=== PATIENT | female | born 1950 | race Caucasian/White ===

== ENCOUNTER 2018-05-23 11:59 | Emergency (ER) | payer MEDICARE ==
[~2018-05-23] VITALS: Ht 170.2 cm; Wt 74.8 kg
[2018-05-23] MEDS ORDERED: IV NORMAL SALINE 1,000ML 1,000 ML IV SCH (12:17)
[2018-05-23] MEDS ORDERED: ONDANSETRON PF 4 MG/2 ML VIAL. IV ONE (12:30)
[2018-05-23 12:53] LABS: BASO % 1 % (0-3); EOS # 0.2 x10^3/uL (0.0-0.7); EOS % 4 % (0-3); HEMATOCRIT 37.8 % (36.0-47.0); HEMOGLOBIN 12.3 g/dL (12.0-15.5); LYMPH # 1.4 x10^3/uL (1.0-4.8); LYMPH % 27 % (24-48); MEAN CORPUSCULAR HEMOGLOBIN 27 pg (25-35); MEAN CORPUSCULAR HGB CONC 33 g/dL (31-37); MEAN CORPUSCULAR VOLUME 82 fL (79-100); MONO # 0.6 x10^3/uL (0.0-1.1); MONO % 12 % (0-9); NEUT # 2.9 x10^3uL (1.8-7.7); NEUT % 56 % (31-73); PLATELET COUNT 354 x10^3/uL (140-400); RED BLOOD COUNT 4.61 x10^6/uL (3.50-5.40); RED CELL DISTRIBUTION WIDTH 15.6 % (11.5-14.5); WHITE BLOOD COUNT 5.1 x10^3/uL (4.0-11.0)
[2018-05-23 13:00] LABS: ALBUMIN 3.1 g/dL (3.4-5.0); ALBUMIN/GLOBULIN RATIO 0.8 (1.0-1.7); CALCIUM 8.9 mg/dL (8.5-10.1); CREATININE 0.9 mg/dL (0.6-1.0); GFR 62.8; POTASSIUM 3.1 mmol/L (3.5-5.1); TOTAL BILIRUBIN 0.6 mg/dL (0.2-1.0); TOTAL PROTEIN 6.8 g/dL (6.4-8.2)
[2018-05-23] MEDS ORDERED: IOHEXOL 300 MG/ML 75 ML VIAL. IV ONE (13:00)
[2018-05-23] MEDS ORDERED: IOHEXOL 240 MG/ML 50ML VIAL. PO ONE (13:00)
--- NOTE | 2018-05-23 13:13 | PHYS DOC ---
Past History Past Medical History: Anxiety, Arthritis, Hypothyroid, Kidney Stones Past Surgical History: Cholecystectomy, Hysterectomy, Knee Replacement Smoking: Non-smoker Alcohol Use: None Drug Use: Benzodiazepine Adult General Chief Complaint Chief Complaint: NAUSEA/VOMITING/DIARRHEA HPI HPI Patient is a 67 year old female who presents with complaining of nausea and diarrhea and abdominal pain for the last 4 days. Patient complaining of constant frequent episodes of nonbloody diarrhea and states she had 5 episodes of diarrhea today. Patient complaining of intermittent lower abdominal cramping pain during episodes of bowel movement and drinking liquid. Patient complaining of generalized weakness and decrease of appetite without fever and chills, sick contact, upper respiratory infection symptoms, no vomiting. Review of Systems Review of Systems Constitutional: Denies fever or chills [] Eyes: Denies change in visual acuity, redness, or eye pain [] HENT: Denies nasal congestion or sore throat [] Respiratory: Denies cough or shortness of breath [] Cardiovascular: No additional information not addressed in HPI [] GI: Reports abdominal pain, nausea, diarrhea [] : Denies dysuria or hematuria [] Musculoskeletal: Denies back pain or joint pain [] Integument: Denies rash or skin lesions [] Neurologic: Denies headache, focal weakness or sensory changes [] Endocrine: Denies polyuria or polydipsia [] All other systems were reviewed and found to be within normal limits, except as documented in this note. Current Medications Current Medications Current Medications Medications (Trade) Dose Ordered Sig/Jac Start Time Stop Time Status Last Admin Dose Admin Iohexol (Omnipaque 240 Mg/ml) 30 ml 1X ONCE 05/23/18 13:00 05/23/18 13:01 Iohexol (Omnipaque 300 Mg/ml) 75 ml 1X ONCE 05/23/18 13:00 05/23/18 13:01 Ondansetron HCl (Zofran) 4 mg 1X ONCE 05/23/18 12:30 05/23/18 12:41 DC 05/23/18 12:30 4 MG Sodium Chloride 1,000 ml @ 1,000 mls/hr Q1H 05/23/18 12:17 05/23/18 13:16 05/23/18 12:31 1,000 MLS/HR Allergies Allergies Allergies Coded Allergies Type Severity Reaction Last Updated Verified shellfish derived Allergy Severe FACIAL AND THROAT SWELLING 05/23/18 Yes Sulfa (Sulfonamide Antibiotics) Allergy Unknown 05/23/18 Yes acetaminophen Allergy Unknown 05/18/16 Yes alprazolam Allergy Unknown 05/23/18 Yes amoxicillin Allergy Unknown 05/23/18 Yes aspartame Allergy Unknown 05/23/18 Yes buspirone Allergy Unknown 05/23/18 Yes carbamazepine Allergy Unknown 05/23/18 Yes clavulanic acid Allergy Unknown 05/23/18 Yes codeine Allergy Unknown 05/18/16 Yes hydrocodone Allergy Unknown 05/18/16 Yes lithium Allergy Unknown 05/23/18 Yes baltazar Allergy Unknown 05/23/18 Yes meloxicam Allergy Unknown 05/23/18 Yes oxycodone Allergy Unknown 05/18/16 Yes risperidone Allergy Unknown 05/23/18 Yes trazodone Allergy Unknown 05/23/18 Yes Physical Exam Physical Exam Constitutional: Well nourished, mild acute distress, non-toxic appearance. [] HENT: Normocephalic, atraumatic, oropharynx moist, no oral exudates, nose normal. [] Eyes: PERRLA, EOMI, conjunctiva normal, no discharge. [] Neck: Normal range of motion, no tenderness, supple, no stridor. [] Cardiovascular:Heart rate regular rhythm, no murmur [] Lungs & Thorax: Bilateral breath sounds clear to auscultation [] Abdomen: Bowel sounds normal, soft, no guarding, no tenderness, no masses, no pulsatile masses. [] Skin: Warm, dry, no erythema, no rash. [] Back: No tenderness, no CVA tenderness. [] Extremities: No tenderness, no cyanosis, no clubbing, ROM intact, no edema. [] Neurologic: Alert and oriented X 3, normal motor function, normal sensory function, no focal deficits noted. [] Psychologic: Affect normal, judgement normal, mood normal. [] Current Patient Data Vital Signs Vital Signs Date Time Temp Pulse Resp B/P (MAP) Pulse Ox O2 Delivery O2 Flow Rate FiO2 05/23/18 12:06 97.9 85 20 98 Room Air EKG EKG [] Radiology/Procedures Radiology/Procedures [address] [address] IMAGING REPORT Signed PATIENT: BEVERLY WALLACE ACCOUNT: [id number] : 1950 LOCATION: ER AGE: 67 SEX: F EXAM STATUS: REG ER ORD. PHYSICIAN: CODI DENIS MD REASON: abdominal pain PROCEDURE: CT ABD PELV W/ORAL&IV CONTRAST CT SCAN OF THE ABDOMEN AND PELVIS WITH IV CONTRAST. History: Abdominal pain with nausea Comparison:None. Procedure: Contiguous axial images of the abdomen and pelvis were performed after the administration of 75 cc of Omni 300 IV contrast and oral contrast. CT Abdomen with contrast: Findings: There is moderate wall thickening of the right colon without surrounding inflammation. The appendix is normal. Liver: Unremarkable Spleen: Unremarkable Pancreas: Unremarkable Adrenal Glands: Unremarkable Kidneys: There is multiple small nonobstructive stones the renal pelvises bilaterally There is no mass or lymphadenopathy. There is no free air. There is no free fluid. CT Pelvis with Contrast: Findings: The urinary bladder appears normal. There is no free fluid. There is no lymphadenopathy. There is mild sigmoid diverticulosis without surrounding inflammation. Impression: Moderate wall thickening of the right colon without surrounding inflammation. This could be inflammatory such as ulcerative colitis or could be infectious such as pseudomembranous colitis. There is no diverticulitis. There is no air in the wall to suggest ischemic colitis. PQRS Compliance Statement: One or more of the following individualized dose reduction techniques were utilized for this examination: 1. Automated exposure control 2. Adjustment of the mA and/or kV according to patient size 3. Use of iterative reconstruction technique Electronically signed by: Tracy Golden III, MD (05/23/2018 1:36 PM) [facility] DICTATED AND SIGNED BY: TRACY GOLDEN III, MD DATE: 05/23/18 1329 CC: CODI DENIS MD; [facility] ~ Course & Med Decision Making Course & Med Decision Making Pertinent Labs and Imaging studies reviewed. (See chart for details) discharge: I've spoken with the patient and/or caregivers. I've explained the patient's condition, diagnosis and treatment plan based on information available to me at this time. I've answered the patient's and/or caregivers questions and addressed any concerns. The patient and/or caregivers have a good understanding the patient's diagnosis, condition and treatment plan as can be expected at this point. Vital signs have been stabilized. The patient's condition is stable for discharge from the emergency department. The patient will pursue further outpatient evaluation with her primary care provider or other designated consulting physician as outlined in the discharge instructions. Patient and/or caregivers are agreeable to this plan of care and follow-up instructions have been explained in detail. The patient and/or caregivers have received these instructions in written format and expressed understanding of these discharge instructions. The patient and her caregivers are aware that if any significant change in condition or worsening of symptoms should prompt him to immediately return to this of the closest emergency department. If an emergent department is not readily available I would encourage him to call 911. Dragon Disclaimer Dragon Disclaimer This electronic medical record was generated, in whole or in part, using a voice recognition dictation system. Departure Departure: Impression: Primary Impression: Acute colitis Additional Impressions: Diarrhea Hypokalemia Disposition: HOME, SELF-CARE (at 1428) Condition: IMPROVED Referrals: [facility] (PCP) Patient Instructions: Colitis, Diarrhea, Diet for Diarrhea, Adult, Hypokalemia Additional Instructions: Drink plenty of liquids Follow-up with your primary care physician in 2-3 days Return to ER if not getting better Scripts Metronidazole (FLAGYL) 250 Mg Tablet 1 TAB PO TID for colitis, #21 TAB Prov: CODI DENIS MD 05/23/18 Ciprofloxacin Hcl (CIPRO) 250 Mg Tablet 1 TAB PO BID for urinary tract infection, #14 TAB Prov: CODI DENIS MD 05/23/18 Problem Qualifiers Additional Impressions: Diarrhea Diarrhea type: infectious Qualified Codes: A09 - Infectious gastroenteritis and colitis, unspecified CODI DENIS MD May 23, 2018 13:13
--- NOTE | 2018-05-23 13:39 | RAD ---
CT SCAN OF THE ABDOMEN AND PELVIS WITH IV CONTRAST. History: Abdominal pain with nausea Comparison:None. Procedure: Contiguous axial images of the abdomen and pelvis were performed after the administration of 75 cc of Omni 300 IV contrast and oral contrast. CT Abdomen with contrast: Findings: There is moderate wall thickening of the right colon without surrounding inflammation. The appendix is normal. Liver: Unremarkable Spleen: Unremarkable Pancreas: Unremarkable Adrenal Glands: Unremarkable Kidneys: There is multiple small nonobstructive stones the renal pelvises bilaterally There is no mass or lymphadenopathy. There is no free air. There is no free fluid. CT Pelvis with Contrast: Findings: The urinary bladder appears normal. There is no free fluid. There is no lymphadenopathy. There is mild sigmoid diverticulosis without surrounding inflammation. Impression: Moderate wall thickening of the right colon without surrounding inflammation. This could be inflammatory such as ulcerative colitis or could be infectious such as pseudomembranous colitis. There is no diverticulitis. There is no air in the wall to suggest ischemic colitis. PQRS Compliance Statement: One or more of the following individualized dose reduction techniques were utilized for this examination: 1. Automated exposure control 2. Adjustment of the mA and/or kV according to patient size 3. Use of iterative reconstruction technique Electronically signed by: Tee Motta III, MD (05/23/2018 1:36 PM) [facility]
[2018-05-23 13:46] LABS: BILIRUBIN,URINE NEG (NEG); CLARITY,URINE CLEAR; COLOR,URINE YELLOW; GLUCOSE,URINE NEG (NEG); NITRITE,URINE NEG (NEG); UROBILINOGEN,URINE 0.2 mg/dL (0.2 mg/dL)
[2018-05-23 13:47] LABS: BACTERIA,URINE 0 /HPF (0-FEW); RBC,URINE 0 /HPF (0-2); SQUAMOUS EPITHELIAL CELL,UR FEW /LPF; WBC,URINE 0 /HPF (0-4)
[2018-05-23] MEDS ORDERED: POTASSIUM CHLORIDE 20 MEQ TABLET.ER. PO ONE (14:15)
[2018-05-23] MEDS ORDERED: CIPR250T30 PO (14:32)
[2018-05-23] MEDS ORDERED: METR250T PO (14:32)
[2018-05-23 14:55] VITALS: BP 163/81
== END 2018-05-23 15:01 | disposition home or self-care (01) ==
LOC: ER 11:59
DX: A09 Infectious gastroenteritis and colitis, unspecified (principal); R19.7 Diarrhea, unspecified; E87.6 Hypokalemia; F41.9 Anxiety disorder, unspecified; M19.90 Unspecified osteoarthritis, unspecified site; E03.9 Hypothyroidism, unspecified; Z87.442 Personal history of urinary calculi; Z90.710 Acquired absence of both cervix and uterus; Z88.6 Allergy status to analgesic agent; Z88.1 Allergy status to other antibiotic agents; Z88.5 Allergy status to narcotic agent; Z91.013 Allergy to seafood; Z88.2 Allergy status to sulfonamides; Z88.8 Allergy status to other drugs, medicaments and biological substances; Z91.018 Allergy to other foods
CPT/HCPCS: 36415; 74177; 80053; 81001; 83690; 85025; 96361; 96374; 99284; J2405; Q9967; J7030

== ENCOUNTER → 2018-12-23 | Outpatient (CLI) | payer MEDICARE ==
[~2018-12-23] MED LIST: CIPR250T30 PO; METR250T PO
--- NOTE | 2018-12-23 16:32 | RAD ---
PA of the chest and 3 views of the left ribs without comparison for rib pain. FINDINGS: The lungs are clear. Heart size within normal limits. No radiographically discernible rib fractures are seen on the left. There is no pneumothorax or pleural effusion. There has been a prior cholecystectomy. 6 mm calcification projecting over the left renal shadow may represent nephrolithiasis. IMPRESSION: 1. No acute cardiopulmonary abnormality. 2. No radiographically discernible rib fractures on the left. 3. Probable left nephrolithiasis. Electronically signed by: Haroon Martin MD (12/23/2018 4:29 PM) [id number]
== END | disposition home or self-care (01) ==
LOC: PMG 09:07
PROVIDERS: ATTEND Physician Assistant Medical
DX: S20.212A Contusion of left front wall of thorax, initial encounter (principal); Z90.49 Acquired absence of other specified parts of digestive tract; X58.XXXA Exposure to other specified factors, initial encounter; Y93.89 Activity, other specified; Y92.89 Other specified places as the place of occurrence of the external cause; Y99.8 Other external cause status
CPT/HCPCS: 71101

== ENCOUNTER → 2019-02-22 | Outpatient (CLI) | payer MEDICARE ==
--- NOTE | 2019-02-22 09:27 | RAD ---
EXAM: Cervical spine, 5 views. HISTORY: Fall. COMPARISON: None. FINDINGS: 5 views of the cervical spine are obtained. There is minimal retrolisthesis of C3 on C4. There is degenerative endplate remodeling with disc space narrowing and facet and uncovertebral arthropathy at multiple levels. No fracture is seen. The lung apices are unremarkable. IMPRESSION: 1. Multilevel degenerative change. 2. No acute osseous finding. Electronically signed by: Winsome Méndez MD (02/22/2019 9:24 AM) [facility]
== END | disposition home or self-care (01) ==
LOC: PMG 08:56
PROVIDERS: ATTEND Physician Assistant Medical
DX: M47.812 Spondylosis without myelopathy or radiculopathy, cervical region (principal); M46.82 Other specified inflammatory spondylopathies, cervical region
CPT/HCPCS: 72050

== ENCOUNTER → 2020-02-07 | Outpatient (CLI) | payer MEDICARE | LOC: LAB 10:03 | PROVIDERS: ATTEND Urology | DX: Z01.812 Encounter for preprocedural laboratory examination (principal); U07.1 COVID-19; N20.0 Calculus of kidney | CPT/HCPCS: U0003 ==

== ENCOUNTER → 2020-06-22 | Outpatient (CLI) | payer MEDICARE ==
--- NOTE | 2020-06-22 14:52 | RAD ---
EXAM: Bilateral knees, 3 views. HISTORY: Pain. COMPARISON: None. FINDINGS: 3 views of both knees are obtained. There are bilateral knee arthroplasties in expected pos ition. There is no evidence of arthroplasty loosening or periprosthetic fracture. There is small left greater than right knee effusions. There are corticated ossicles along the superior right greater th an left patellae. IMPRESSION: Bilateral knee arthroplasties in expected position. There are small knee effusions. Electronically signed by: Winsome Méndez MD (06/22/2020 2:50 PM) [id number]
== END ==
LOC: RAD 13:50
PROVIDERS: ATTEND Orthopaedic Surgery
DX: M25.462 Effusion, left knee (principal); M25.461 Effusion, right knee; Z96.651 Presence of right artificial knee joint; Z96.652 Presence of left artificial knee joint
CPT/HCPCS: 73560; 73565

== ENCOUNTER → 2021-02-07 | Outpatient (CLI) | payer MEDICARE ==
--- NOTE | 2021-02-07 17:40 | RAD ---
Bilateral digital screening 2-D and 3-D (digital breast tomosynthesis) mammogram: Reason for examination: Routine screening. Comparison: None available. Interpretation was made with the benefit of CAD. FINDINGS: Breast density: Category B. There are scattered areas of fibroglandular density. No suspicious breast mass, malignant appearing calcifications, or architectural distortion is seen. IMPRESSION: No evidence of malignancy. Assessment: BI-RADS 1. Negative. Recommendation: Routine screening mammograms. The patient will receive a letter with the results in the mail. Patient information will be entered i nto the mammography reminder system with a target recall date for the next mammogram. A reminder win er will be generated. Electronically signed by: Kinsey Fonseca MD (02/07/2021 5:38 PM) [id number]
== END ==
LOC: MAMMO 14:31
PROVIDERS: ATTEND Nurse Practitioner Gerontology
DX: Z12.31 Encounter for screening mammogram for malignant neoplasm of breast (principal)
CPT/HCPCS: 77063; 77067

== ENCOUNTER → 2021-03-02 | Outpatient (CLI) | payer MEDICARE ==
--- NOTE | 2021-03-02 14:05 | RAD ---
CT scan of the chest without contrast 03/02/2021 CLINICAL HISTORY: History of abnormal chest radiograph. TECHNIQUE: Unenhanced, contiguous, 0.625 mm axial sections were obtained through the chest and upper abdomen. 3 mm reconstructed sagittal axial coronal images were obtained. FINDINGS: Comparison is made to PA chest radiograph dated 12/23/2018. A mass is seen involving the left upper lobe/left hilum which extends to involve the mediastinum. Lef t lingular atelectasis is seen. This mass is difficult to separate from adjacent structures due to la ck of intravenous contrast the measures approximately 5.7 x 5.6 x 4.4 cm in craniocaudal, transverse and AP dimensions. Enlarged mediastinal lymph nodes are seen which measure 1 to 2.2 cm in size. Enlar ged epicardial lymph nodes are seen anteriorly near the diaphragm which measure 1 to 1.6 cm in size. Atherosclerotic calcification of the thoracic aorta and its branches is noted. The thoracic aorta is tortuous but tapers normally. The heart is normal in size. There is a small right pleural effusion. Patchy right lower lobe and right middle lobe atelectasis an d/or infiltrate is seen. No pneumothorax is noted. Images through the upper abdomen demonstrate surgical changes consistent with gastric reduction surge ry. A small amount of ascites is seen throughout the liver. Atherosclerotic calcification of the abdo carmel aorta is seen. Fullness of the left adrenal gland is noted. Enlarged retrocrural lymph nodes ar e seen which measure 1 to 2.6 cm in size. Degenerative changes are seen throughout the thoracic spine . IMPRESSION: 5.7 cm mass is seen involving the left upper lobe/left hilum which extends to involve the mediastinum. This is concerning for bronchogenic carcinoma. Mediastinal lymphadenopathy is seen as d iscussed above. Electronically signed by: Esteban Dang MD (03/02/2021 2:03 PM) [id number]
== END ==
LOC: CT 09:08
PROVIDERS: ATTEND Physician Assistant Medical
DX: J98.11 Atelectasis (principal); R91.8 Other nonspecific abnormal finding of lung field; I70.0 Atherosclerosis of aorta; Q25.46 Tortuous aortic arch; J90 Pleural effusion, not elsewhere classified; R59.0 Localized enlarged lymph nodes; R18.8 Other ascites; M47.814 Spondylosis without myelopathy or radiculopathy, thoracic region
CPT/HCPCS: 71250

== ENCOUNTER → 2021-04-13 | Outpatient (CLI) | payer MEDICARE ==
--- NOTE | 2021-04-13 10:17 | RAD ---
Exam Date: 04/13/2021 9:58 AM XR RT WRIST [id number] Indication: Reason: PAIN / Spl. Instructions: / History: . FINDINGS/ IMPRESSION: No acute fracture or dislocation. Moderate degenerative changes are noted. Alignment is maintained. There is soft tissue swelling around the wrist. Electronically signed by: Toño Hays MD (04/13/2021 10:14 AM) [id number]
== END ==
LOC: RAD 09:35
PROVIDERS: ATTEND Nurse Practitioner Family
DX: S69.91XA Unspecified injury of right wrist, hand and finger(s), initial encounter (principal); M79.89 Other specified soft tissue disorders; X58.XXXA Exposure to other specified factors, initial encounter; Y93.89 Activity, other specified; Y92.89 Other specified places as the place of occurrence of the external cause; Y99.8 Other external cause status
CPT/HCPCS: 73110